=== PATIENT | male | born 1960 | race Two or more races ===

== ENCOUNTER 2024-06-01 17:42 | Emergency (ER) | payer MEDICARE, OTHER ==
[~2024-06-01] VITALS: Ht 165.1 cm; Wt 70.0 kg
--- NOTE | 2024-06-01 18:07 | ED.PDOC ---
History of Present Illness HPI Comments 64-YEAR-OLD MALE IS BROUGHT IN BY EMS FOR COMPLAINT OF CHEST PAIN NO SHORTNESS A BREATH, TODAY. PER EMS REPORT PATIENT VOICES ON UNPROVOKED ONSET OF SYMPTOMS, WHILE WALKING, WE PAIN RADIATING FROM HIS CHEST TO HIS LEFT ARM. PATIENT WAS STATED TO HAS BEEN EVICTED, RECENTLY, AND EXPOSED TO THE ELEMENTS PRIOR TO CALLING PARAMEDICS. PATIENT WAS NOTED TO HAVE VITALS WITHIN NORMAL LIMITS ON SCENE AND EN ROUTE. UPON ARRIVAL TO ED, PATIENT COMMENTS ON SYMPTOMS TO RESOLVING ON THEIR OWN. HE DENIES HAVING ANY SYMPTOMS CURRENTLY AT THIS TIME AND INQUIRES ON ESTABLISHMENTS RECOMMENDATIONS TO EAT AT. Time Seen by MD: 17:45 Reviewed Notes: Nurses Notes, Bagging Salvager Notes, Medications, Allergies Allergies: Coded Allergies: NO KNOWN ALLERGIES (Unverified , 06/01/24) Information Source: Patient, Emergency Med Personnel Mode of Arrival: EMS Severity: Moderate Timing: Hours Duration: Since onset Prehospital treatment: 12 Lead EKG, Nozzle Tender Past Medical History PAST MEDICAL HISTORY: Denies Surgical History: Denies all surgeries Family History Family History: Reviewed,noncontributory to illness, No family hx of Cancer, No family hx of DM, No family hx of Heart jamie, No family hx of HTN, No family hx ofKidney jamie, No family hx of Liver jamie, No family hx of Lung jamie, No family hx of Stroke Social History Smoker: Non-Smoker Alcohol: Denies ETOH Use Drugs: Denies Drug Use Lives In: Homeless Constitutional: denies: chills, diaphoresis, fatigue, fever, malaise, sweats, weakness, others EENTM: denies: blurred vision, double vision, ear bleeding, ear discharge, ear drainage, ear pain, ear ringing, eye pain, eye redness, hearing loss, mouth pain, mouth swelling, nasal discharge, nose bleeding, nose congestion, nose pain, photophobia, tearing, throat pain, throat swelling, voice changes, others Respiratory: reports: shortness of breath; denies: cough, hemoptysis, orthopnea, SOB at rest, SOB with excertion, stridor, wheezing, others Cardiovascular: reports: chest pain; denies: dizzy spells, diaphoresis, Dyspnea on exertion, edema, irregular heart beat, left arm pain, lightheadedness, palpitations, PND, syncope, others Gastrointestinal: denies: abdomen distended, abdominal pain, blood streaked bowels, constipated, diarrhea, dysphagia, difficulty swallowing, hematemesis, melena, nausea, poor appetite, poor fluid intake, rectal bleeding, rectal pain, vomiting, others Genitourinary: denies: burning, dysuria, flank pain, frequency, hematuria, incontinence, penile discharge, penile sore, pain, testicle pain, testicle swelling, urgency, others Neurological: denies: dizziness, fainting, headache, left sided numbness, left sided weakness, numbness, paresthesia, pre-existing deficit, right sided numbness, right sided weakness, seizure, speech problems, tingling, tremors, weakness, others Musculoskeletal: denies: back pain, gout, joint pain, joint swelling, muscle pain, muscle stiffness, neck pain, others Integumetry: denies: bruises, change in color, change in hair/nails, dryness, laceration, lesions, lumps, rash, wounds, others Allergic/Immunocompromised: denies: Difficulty Healing, Frequent Infections, Hives, Itching, others Hematologic/Lymphatic: denies: anemia, blood clots, easy bleeding, easy bruising, swollen glands, others Endocrine: denies: excessive hunger, excessive sweating, excessive thirst, excessive urination, flushing, intolerance to cold, intolerance to heat, unexplained weight gain, unexplained weight loss, others Psychiatric: denies: anxiety, bipolar disorder, depression, hopeless, panic disorder, schizophrenia, sleepless, suicidal, others All Other Systems: Reviewed and Negative (NEGATIVE UNLESS OTHERWISE STATED ABOVE OR IN HPI) Physical Exam General Appearance: Mild Distress (No distress at time of evaluation.), Normal HEENT: Normal ENT Inspection, Pharynx Normal, TMs Normal Neck: Full Range of Motion, Non-Tender, Normal, Normal Inspection Respiratory: Chest Non-Tender, Lungs Clear, No Accessory Muscle Use, No Respiratory Distress, Normal Breath Sounds Cardiovascular: No Edema, No JVD, No Murmur, No Gallop, Normal Peripheral Pulses, Regular Rate/Rhythm Breast Exam: Deferred Gastrointestinal: No Organomegaly, Non Tender, No Pulsatile Mass, Normal Bowel Sounds, Soft Genitalia: Deferred Pelvic: Deferred Rectal: Deferred Extremities: No calf tenderness, Normal capillary refill, Normal inspection, Normal range of motion, Non-tender, No pedal edema Neurologic: Alert, No Motor Deficits, Normal Affect, Normal Mood, No Sensory Deficits Cerebellar Function: Normal Reflexes: Normal Skin: Dry, Normal Color, Warm Lymphatic: No Adenopathy Was a procedure done? Was a procedure done?: No EKG EKG : Pulse Rate (adult): 107 [place]: Normal Cardiac Rhythm: ST Block: None Hypertrophy: None ST: Normal Differential Dx Considerations may include: HOMELESSNESS, COLD EXPOSURE, ANXIETY, ANGINA, COSTOCHONDRITIS, acute coronary syndrome X-Ray, Labs, Meds, VS Vital Signs Date Time Temp Pulse Resp B/P (MAP) Pulse Ox O2 Delivery O2 Flow Rate FiO2 06/01/24 18:23 107 06/01/24 17:42 107 06/01/24 17:42 98.9 90 16 158/69 (98) 100 Lab Test 06/01/24 18:08 06/01/24 17:50 Range/Units White Blood Count 12.1 H 4.4-10.8 10^3/uL Red Blood Count 5.93 H 4.5-5.90 10^6/uL Hemoglobin 16.6 13.5-17.5 g/dL Hematocrit 49.7 41.0-53.0 % Mean Corpuscular Volume 83.9 80.0-100.0 fL Mean Corpuscular Hemoglobin 28.1 28.0-32.0 pg Mean Corpuscular Hemoglobin Concent 33.5 32.0-36.0 g/dL Red Cell Distribution Width 13.1 11.8-14.3 % Platelet Count 351 140-450 10^3/uL Mean Platelet Volume 6.9 6.9-10.8 fL Neutrophils (%) (Auto) 59.6 37.0-80.0 % Lymphocytes (%) (Auto) 30.5 10.0-50.0 % Monocytes (%) (Auto) 7.7 0.0-12.0 % Eosinophils (%) (Auto) 1.6 0.0-7.0 % Basophils (%) (Auto) 0.6 0.0-2.0 % Neutrophils # (Auto) 7.2 1.6-8.6 10 ^3/uL Lymphocytes # (Auto) 3.7 0.4-5.4 10 ^3/uL Monocytes # (Auto) 0.9 0-1.3 10 ^3/uL Eosinophils # (Auto) 0.2 0-0.8 10 ^3/uL Basophils # (Auto) 0.1 0-0.2 10 ^3/uL Nucleated Red Blood Cells 0.2 % Sodium Level 139 136-145 mmol/L Potassium Level 3.9 3.5-5.1 mmol/L Chloride Level 103 98-107 mmol/L Carbon Dioxide Level 25 20-31 mmol/L Anion Gap 11 5-15 Blood Urea Nitrogen 16 9-23 mg/dL Creatinine 1.28 0.700-1.30 mg/dL Glomerular Filtration Rate Calc 63 >90 mL/min BUN/Creatinine Ratio 12.5 10.0-20.0 Serum Glucose 203 H 74-106 mg/dL Calcium Level 10.8 H 8.7-10.4 mg/dL Troponin I High Sensitivity 12 </=54 ng/L Urine Color Yellow Yellow Urine Clarity Clear Clear Urine pH 5.5 5.0-9.0 Urine Specific [place] 1.038 H 1.001-1.035 Urine Protein Trace H Negative Urine Ketones Negative Negative Urine Blood Negative Negative /uL Urine Nitrite Negative Negative Urine Bilirubin Negative Negative Urine Urobilinogen Normal Negative mg/dL Urine Leukocyte Esterase Negative Negative /uL Urine RBC 3 0 - 3 /hpf Urine Microscopic WBC 2 0-3 /HPF Urine Squamous Epithelial Cells Few <5 /hpf Urine Bacteria None seen None Seen /hpf Urine Hyaline Casts Few 0 - 2 /lpf Urine Mucus Few None Seen Urine Glucose 4+ H Normal mg/dL X-Ray, Labs, Meds, VS Comment All studies performed the ED were evaluated by me personally. Laboratories studies were unremarkable for any acute systemic processes including any cardiac related concerns. EKG revealed a sinus tachycardia with a rate of 107, left atrial enlargement, [place] interval of 109 and QT interval of 333. Unknown cause of patient's chest pain event. Patient has been advised to follow up with his primary care provider for Cardiology referral and evaluation. Time of 1ST Reevaluation: 19:47 Reevaluation 1ST: Improved Consultation: PCP, Cardiology Patient Education/Counseling: Diagnosis, Treatment Family Education/Counseling: Diagnosis, Treatment, No Family Present Departure 1 Departure Time of Disposition: 19:48 Impression: Primary Impression: Chest pain Disposition: 01 HOME / SELF CARE / HOMELESS Condition: Stable Additional Instructions: Advised patient follow up with his primary care provider for Cardiology referral and evaluation. Discharged With: Self Critical Care Note Critical Care Time?: No Stability Stability form required: No Heart Score Heart Score: Heart Score Response (Comments) Value History Slightly Suspicious 0 EKG Repolarization Disturb 1 Age 45-64 1 Risk Factors No known risk factors 0 Troponin Normal limit 0 Total 2 I personally scribed for MAXINE CRUZ PAC ([email or web address]) on 06/01/24 at 18:07. Electronically submitted by Tyler Conley ([email or web address]). I personally scribed for MAXINE CRUZ PAC ([email or web address]) on 06/01/24 at 18:23. Electronically submitted by Tyler Conley [email or web address]). MAXINE CRUZ PAC Jun 01, 2024 18:07
[2024-06-01 18:22] LABS: Basophils # (auto) 0.1 10 ^3/uL (0-0.2); Basophils % (auto) 0.6 % (0.0-2.0); Eosinophils # (auto) 0.2 10 ^3/uL (0-0.8); Eosinophils % (auto) 1.6 % (0.0-7.0); Hematocrit 49.7 % (41.0-53.0); Hemoglobin 16.6 g/dL (13.5-17.5); Lymphocytes # (auto) 3.7 10 ^3/uL (0.4-5.4); Lymphocytes % (auto) 30.5 % (10.0-50.0); Mean Corpuscular Hemoglobin 28.1 pg (28.0-32.0); Mean Corpuscular Hgb Conc. 33.5 g/dL (32.0-36.0); Mean Corpuscular Volume 83.9 fL (80.0-100.0); Monocytes # (auto) 0.9 10 ^3/uL (0-1.3); Monocytes % (auto) 7.7 % (0.0-12.0); Neutrophils # (auto) 7.2 10 ^3/uL (1.6-8.6); Neutrophils % (auto) 59.6 % (37.0-80.0); Nucleated Red Blood Cells % 0.2 %; Platelet Count (auto) 351 10^3/uL (140-450); Red Blood Cells 5.93 10^6/uL (4.5-5.90); Red Cell Distribution Width 13.1 % (11.8-14.3); White Blood Cell 12.1 10^3/uL (4.4-10.8)
[2024-06-01 18:43] LABS: Chloride 103 mmol/L (98-107); Potassium 3.9 mmol/L (3.5-5.1); Sodium 139 mmol/L (136-145)
[2024-06-01 18:44] LABS: Anion Gap 11 (5-15); Carbon Dioxide 25 mmol/L (20-31)
[2024-06-01 18:50] LABS: BUN/Creatinine Ratio 12.5 (10.0-20.0); Blood Urea Nitrogen 16 mg/dL (9-23)
[2024-06-01 18:58] LABS: Calcium 10.8 mg/dL (8.7-10.4); Glucose 203 mg/dL (74-106)
[2024-06-01 19:07] LABS: Urine Bacteria None Seen /hpf (None Seen)
[2024-06-01 19:41] LABS: Urine Blood Negative /uL (Negative); Urine Clarity Clear (Clear); Urine Color Yellow (Yellow); Urine Hyaline Cast FEW /lpf (0 - 2); Urine Mucus FEW (None Seen); Urine Protein, UAD TRACE (Negative); Urine Specific Gravity 1.038 (1.001-1.035); Urine Squamous Epithelial Cell FEW /hpf (<5); Urine Urobilinogen Normal (Negative); Urine WBC 2 /HPF (0-3); Urine pH 5.5 (5.0-9.0)
[2024-06-01] MEDS: METOPROLOL TARTRATE 1MG/1ML-5ML VIAL IV ONE (20:09)
[2024-06-01 20:10] VITALS: BP 136/63; PULSE 107; RESP 19; TEMP 98.2; O2SAT 98
[2024-06-02] MEDS ORDERED: LISI-285 PO (01:16)
[2024-06-02] MEDS ORDERED: INSLANTI SC ×2 (01:16→22:29)
--- NOTE | 2024-06-02 08:44 | ECG ---
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
== END 2024-06-01 20:12 | disposition home or self-care (01) ==
LOC: EDBD 17:42 → ER 17:42
DX: R07.9 Chest pain, unspecified (principal); M79.602 Pain in left arm; Z59.00 Homelessness unspecified
CPT/HCPCS: 36415; 80048; 81001; 84484; 85025; 93005

== ENCOUNTER 2024-06-02 00:03 | Emergency (ER) | payer MEDICARE, OTHER ==
[~2024-06-02] VITALS: Ht 172.7 cm; Wt 78.5 kg
[2024-06-02 00:16] VITALS: RESP 18; TEMP 96.1; O2SAT 98
[2024-06-02 00:31] VITALS: PULSE 114
--- NOTE | 2024-06-02 01:00 | ED.PDOC ---
HPI Comments A 64 YEAR OLD /MALE PRESENTS TO THE ED WITH COMPLAINT OF HTN . STATES HE FEELS LIKE HIS BLOOD PRESSURE IS HIGH. YOUR EARLIER BEFORE FOR SAME FEELING HOWEVER WAS NOT PRESCRIBED ANY MEDICATIONS FOR HIS BLOOD PRESSURE WAS TOLD TO FOLLOW UP WITH HIS PCP. PATIENT STATES HE RAN OUT OF HIS REFILLS OF BOTH BLOOD PRESSURE MEDICATION AND DIABETES MEDICINE. STATES HE IS ON LANTUS 50 UNITS HS. HYDROCHLOROTHIAZIDE/LISINOPRIL 20 MG/12.5 MG. BLOOD SUGAR 320 IN TRIAGE. PATIENT DENIES FEVER, CHILLS, SHORTNESS OF BREATH, CHEST PAIN, WEAKNESS, NUMBNESS, HEADACHE, SLURRED SPEECH, ABDOMINAL PAIN, NAUSEA, VOMITING, HEADACHE, OR OTHER COMPLAINTS. NO OTHER SYMPTOMS OR MODIFYING FACTORS AT THIS TIME Chief Complaint: High Blood Pressure Time Seen by MD: 00:32 Primary Care Provider: GENARO Reviewed Notes: Nurses Notes, Medications, Allergies Allergies: Coded Allergies: NO KNOWN ALLERGIES (Unverified , 06/01/24) Home Meds Active Scripts Insulin Glargine (Lantus) 100 Unit/Ml Inj, 50 UNIT SC HS for 20 Days, #1 INJ Prov:VALENTINE VICENTE 06/02/24 Lisinopril & Hydrochlorothiazi (Lisinopril/Hydrochlorothi) 1 Tab Tab, 1 TAB PO BID for 20 Days, #40 TAB Prov:VALENTINE VICENTE 06/02/24 Information Source: Patient Mode of Arrival: Ambulatory Past Medical History PAST MEDICAL HISTORY: Denies Surgical History: Denies all surgeries Family History Family History: Reviewed,noncontributory to illness, No family hx of Cancer, No family hx of DM, No family hx of Heart jamie, No family hx of HTN, No family hx ofKidney jamie, No family hx of Liver jamie, No family hx of Lung jamie, No family hx of Stroke Social History Smoker: Non-Smoker Alcohol: Denies ETOH Use Drugs: Denies Drug Use Lives In: Homeless Constitutional: denies: chills, diaphoresis, fatigue, fever, malaise, sweats, weakness, others EENTM: denies: blurred vision, double vision, ear bleeding, ear discharge, ear drainage, ear pain, ear ringing, eye pain, eye redness, hearing loss, mouth pain, mouth swelling, nasal discharge, nose bleeding, nose congestion, nose pain, photophobia, tearing, throat pain, throat swelling, voice changes, others Respiratory: denies: cough, hemoptysis, orthopnea, SOB at rest, shortness of breath, SOB with excertion, stridor, wheezing, others Cardiovascular: denies: chest pain, dizzy spells, diaphoresis, Dyspnea on exertion, edema, irregular heart beat, left arm pain, lightheadedness, palpitations, PND, syncope, others Gastrointestinal: denies: abdomen distended, abdominal pain, blood streaked bowels, constipated, diarrhea, dysphagia, difficulty swallowing, hematemesis, melena, nausea, poor appetite, poor fluid intake, rectal bleeding, rectal pain, vomiting, others Genitourinary: denies: burning, dysuria, flank pain, frequency, hematuria, incontinence, penile discharge, penile sore, pain, testicle pain, testicle swelling, urgency, others Neurological: denies: dizziness, fainting, headache, left sided numbness, left sided weakness, numbness, paresthesia, pre-existing deficit, right sided numbness, right sided weakness, seizure, speech problems, tingling, tremors, weakness, others Musculoskeletal: denies: back pain, gout, joint pain, joint swelling, muscle pain, muscle stiffness, neck pain, others Integumetry: denies: bruises, change in color, change in hair/nails, dryness, laceration, lesions, lumps, rash, wounds, others Allergic/Immunocompromised: denies: Difficulty Healing, Frequent Infections, Hives, Itching, others Hematologic/Lymphatic: denies: anemia, blood clots, easy bleeding, easy bruising, swollen glands, others Endocrine: denies: excessive hunger, excessive sweating, excessive thirst, excessive urination, flushing, intolerance to cold, intolerance to heat, unexplained weight gain, unexplained weight loss, others Psychiatric: denies: anxiety, bipolar disorder, depression, hopeless, panic disorder, schizophrenia, sleepless, suicidal, others Physical Exam General Appearance: No Apparent Distress, Normal HEENT: Normal ENT Inspection, Pharynx Normal, TMs Normal Neck: Full Range of Motion, Non-Tender Respiratory: Lungs Clear, No Respiratory Distress, Normal Breath Sounds Cardiovascular: No Edema, No JVD, No Murmur, No Gallop, Normal Peripheral Pulses, Regular Rate/Rhythm Breast Exam: Deferred Gastrointestinal: No Organomegaly, Non Tender, No Pulsatile Mass, Normal Bowel Sounds, Soft Genitalia: Deferred Pelvic: Deferred Rectal: Deferred Extremities: Normal capillary refill, Normal inspection, Normal range of motion, Non-tender, No pedal edema Musculoskeletal : Apperance: Normal Neurologic: Alert, process excellence manager II-XII nml as Tested, No Motor Deficits, Normal Affect, Normal Mood, No Sensory Deficits Cerebellar Function: Normal Reflexes: Normal Skin: Dry, Normal Color, Warm Lymphatic: No Adenopathy Was a procedure done? Was a procedure done?: No CP Differential Dx Differential Diagnosis: Anxiety / Panic Attack, SD, PVC's, Sinus Tachycardia Differential Diagnosis: Myocardial Infarction X-Ray, Labs, Meds, VS Vital Signs Date Time Temp Pulse Resp B/P (MAP) Pulse Ox O2 Delivery O2 Flow Rate FiO2 06/02/24 01:30 163/94 06/02/24 00:31 114 06/02/24 00:16 96.1 114 18 163/94 (117) 98 96.1 06/02/24 00:16 96.1 114 18 163/94 (117) 98 Lab Test 06/02/24 01:19 06/02/24 00:16 Range/Units POC Glucose 334 H 356 H 70-106 mg/dl Current Medications Medications (Trade) Dose Ordered Sig/Kenzie Route Start Time Stop Time Status Last Admin Lisinopril (Zestril Tablet) 20 mg ONCE ONCE PO 06/02/24 01:30 06/02/24 01:31 DC 06/02/24 01:30 X-Ray, Labs, Meds, VS Comment MEDICATION REFILL BASED ON PATIENT'S REPORTED HISTORY. PATIENT GIVEN LISINOPRIL 20 MG X 1. ADVISED TO REST INCREASE P.O. FLUIDS. ADVISED TO REFILL HIS MEDICATIONS AND FOLLOW UP WITH HIS PCP FOR FURTHER REFILLS. FOLLOW-UP WITH PCP IN 1 TO 2 DAYS. TAKE MEDICATIONS PRESCRIBED. RETURN TO ED FOR ANY NEW OR WORSENING SYMPTOMS. Time of 1ST Reevaluation: 01:51 Reevaluation 1ST: Improved Patient Education/Counseling: Diagnosis, Treatment, Prognosis, Need For Follow Up Family Education/Counseling: No Family Present Departure 1 Departure Time of Disposition: 01:51 Impression: Primary Impression: Diabetes type 1, controlled Qualified Codes: E10.9 - Type 1 diabetes mellitus without complications Additional Impressions: Benign hypertension Encounter for medication refill Disposition: HOME / SELF CARE / HOMELESS Condition: Stable e-Prescriptions Insulin Glargine (Lantus) 100 Unit/Ml Inj 50 UNIT SC HS for 20 Days, #1 INJ Prov: VALENTINE VICENTE 06/02/24 Lisinopril & Hydrochlorothiazi (Lisinopril/Hydrochlorothi) 1 Tab Tab 1 TAB PO BID for 20 Days, #40 TAB Prov: VALENTINE VICENTE 06/02/24 Discharged With: Self Critical Care Note Critical Care Time?: No Stability Stability form required: No Heart Score Heart Score: Heart Score Response (Comments) Value History N/A 0 EKG N/A 0 Age 45-64 1 Risk Factors N/A 0 Troponin N/A 0 Total 1 VALENTINE VICENTE Jun 02, 2024 01:00
[2024-06-02] MEDS ORDERED: INSLANTI SC ×2 (01:16→22:29)
[2024-06-02] MEDS ORDERED: LISI-285 PO (01:16)
[2024-06-02] MEDS: LISINOPRIL 20 MG TAB PO ONE (01:30)
[2024-06-02 02:19] VITALS: BP 147/76
== END 2024-06-02 02:20 | disposition home or self-care (01) ==
LOC: ER 00:10
DX: E10.9 Type 1 diabetes mellitus without complications (principal); I10 Essential (primary) hypertension; Z76.0 Encounter for issue of repeat prescription; Z59.00 Homelessness unspecified; Z79.4 Long term (current) use of insulin
CPT/HCPCS: 82962

== ENCOUNTER 2024-06-02 17:54 | Emergency (ER) | payer MEDICARE, OTHER ==
[~2024-06-02] VITALS: Ht 152.4 cm; Wt 82.1 kg
[~2024-06-02 17:54] MED LIST: INSLANTI SC; LISI-285 PO
--- NOTE | 2024-06-02 18:20 | ECG ---
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
--- NOTE | 2024-06-02 19:00 | ED.PDOC ---
GI ASSESSMENT HPI Comments 64-year-old male came to ER due to abdominal pain. Patient has history of hypertension and diabetes. Denies any history of abdominal surgeries. States few hours ago he started having right lower quadrant abdominal pain, aching, non radiating, associated with bouts of diarrhea. Persistence prompted check up to the ER. Chief Complaint: Abdominal Pain Time Seen by MD: 19:00 Primary Care Provider: GENARO Reviewed Notes: Nurses Notes Allergies: Coded Allergies: NO KNOWN ALLERGIES (Unverified , 06/01/24) Home Meds Active Scripts Insulin Glargine (Lantus) 100 Unit/Ml Inj, 50 UNIT SC HS for 20 Days, #1 INJ Prov:DANTE VICENTEK PROOFING MACHINE OPERATOR 06/02/24 Lisinopril & Hydrochlorothiazi (Lisinopril/Hydrochlorothi) 1 Tab Tab, 1 TAB PO BID for 20 Days, #40 TAB Prov:VALENTINE VICENTE PROOFING MACHINE OPERATOR 06/02/24 Information Source: Patient Mode of Arrival: Ambulatory Timing: Hours Duration: Intermittent Prehospital treatment: None Quality: Aching Vomitus: None Stool: Loose, Watery Severity: Moderate Recent: None Recent Hx of: None Pain Location: RLQ Modifying Factors: Nothing Associated sign and symptoms: Diarrhea, Abdominal Pain Past Medical History PAST MEDICAL HISTORY: DM, HTN Surgical History: Denies all surgeries Family History Family History: Reviewed,noncontributory to illness Social History Smoker: Non-Smoker Alcohol: Denies ETOH Use Drugs: Denies Drug Use Lives In: Homeless Constitutional: denies: chills, diaphoresis, fatigue, fever, malaise, sweats, weakness, others EENTM: denies: blurred vision, double vision, ear bleeding, ear discharge, ear drainage, ear pain, ear ringing, eye pain, eye redness, hearing loss, mouth pain, mouth swelling, nasal discharge, nose bleeding, nose congestion, nose pain, photophobia, tearing, throat pain, throat swelling, voice changes, others Respiratory: denies: cough, hemoptysis, orthopnea, SOB at rest, shortness of breath, SOB with excertion, stridor, wheezing, others Cardiovascular: denies: chest pain, dizzy spells, diaphoresis, Dyspnea on exertion, edema, irregular heart beat, left arm pain, lightheadedness, palpitations, PND, syncope, others Gastrointestinal: reports: abdominal pain, diarrhea; denies: abdomen distended, blood streaked bowels, constipated, dysphagia, difficulty swallowing, hematemesis, melena, nausea, poor appetite, poor fluid intake, rectal bleeding, rectal pain, vomiting, others Genitourinary: denies: burning, dysuria, flank pain, frequency, hematuria, incontinence, penile discharge, penile sore, pain, testicle pain, testicle swelling, urgency, others Neurological: denies: dizziness, fainting, headache, left sided numbness, left sided weakness, numbness, paresthesia, pre-existing deficit, right sided numbness, right sided weakness, seizure, speech problems, tingling, tremors, weakness, others Musculoskeletal: denies: back pain, gout, joint pain, joint swelling, muscle pain, muscle stiffness, neck pain, others Integumetry: denies: bruises, change in color, change in hair/nails, dryness, laceration, lesions, lumps, rash, wounds, others Allergic/Immunocompromised: denies: Difficulty Healing, Frequent Infections, Hives, Itching, others Hematologic/Lymphatic: denies: anemia, blood clots, easy bleeding, easy bruising, swollen glands, others Endocrine: denies: excessive hunger, excessive sweating, excessive thirst, excessive urination, flushing, intolerance to cold, intolerance to heat, unexplained weight gain, unexplained weight loss, others Psychiatric: denies: anxiety, bipolar disorder, depression, hopeless, panic disorder, schizophrenia, sleepless, suicidal, others Physical Exam General Appearance: No Apparent Distress, Normal HEENT: Normal ENT Inspection, Pharynx Normal, TMs Normal Neck: Full Range of Motion, Non-Tender, Normal, Normal Inspection Respiratory: Chest Non-Tender, Lungs Clear, No Accessory Muscle Use, No Respiratory Distress, Normal Breath Sounds Cardiovascular: No Edema, No JVD, No Murmur, No Gallop, Normal Peripheral Pulses, Regular Rate/Rhythm Breast Exam: Deferred Gastrointestinal: No Organomegaly, No Pulsatile Mass, Normal Bowel Sounds, RLQ, Soft, Tenderness Genitalia: Deferred Pelvic: Deferred Rectal: Deferred Extremities: No calf tenderness, Normal capillary refill, Normal inspection, Normal range of motion, Non-tender, No pedal edema Musculoskeletal : Apperance: Normal Neurologic: Alert, engine builder II-XII nml as Tested, No Motor Deficits, Normal Affect, Normal Mood, No Sensory Deficits Cerebellar Function: Normal Reflexes: Normal Skin: Dry, Normal Color, Warm Lymphatic: No Adenopathy Was a procedure done? Was a procedure done?: No GI differential Dx Differential Diagnosis: Appendicitis, Constipation, Diverticular disease, Gastritis/PUD, Hernia, Hepatitis, Pancreatitis, UTI, Urolithiasis X-Ray, Labs, Meds, VS Vital Signs Date Time Temp Pulse Resp B/P (MAP) Pulse Ox O2 Delivery O2 Flow Rate FiO2 06/02/24 21:12 91 18 100 Room Air* 0 21 06/02/24 21:10 97.9 91 18 171/83 (112) 100 97.9 06/02/24 18:15 93 06/02/24 18:13 97.5 98 16 118/70 (86) 99 Lab Test 06/02/24 21:05 06/02/24 19:05 Range/Units POC Glucose 321 H 70-106 mg/dl White Blood Count 7.2 # 4.4-10.8 10^3/uL Red Blood Count 4.97 4.5-5.90 10^6/uL Hemoglobin 14.1 # 13.5-17.5 g/dL Hematocrit 41.8 # 41.0-53.0 % Mean Corpuscular Volume 84.0 80.0-100.0 fL Mean Corpuscular Hemoglobin 28.3 28.0-32.0 pg Mean Corpuscular Hemoglobin Concent 33.7 32.0-36.0 g/dL Red Cell Distribution Width 13.3 11.8-14.3 % Platelet Count 308 140-450 10^3/uL Mean Platelet Volume 7.0 6.9-10.8 fL Neutrophils (%) (Auto) 39.2 37.0-80.0 % Lymphocytes (%) (Auto) 45.7 10.0-50.0 % Monocytes (%) (Auto) 9.4 0.0-12.0 % Eosinophils (%) (Auto) 4.9 0.0-7.0 % Basophils (%) (Auto) 0.8 0.0-2.0 % Neutrophils # (Auto) 2.8 1.6-8.6 10 ^3/uL Lymphocytes # (Auto) 3.3 0.4-5.4 10 ^3/uL Monocytes # (Auto) 0.7 0-1.3 10 ^3/uL Eosinophils # (Auto) 0.4 0-0.8 10 ^3/uL Basophils # (Auto) 0.1 0-0.2 10 ^3/uL Nucleated Red Blood Cells 0.1 % Sodium Level 137 136-145 mmol/L Potassium Level 4.1 3.5-5.1 mmol/L Chloride Level 99 98-107 mmol/L Carbon Dioxide Level 30 20-31 mmol/L Anion Gap 8 5-15 Blood Urea Nitrogen 23 9-23 mg/dL Creatinine 1.09 0.700-1.30 mg/dL Glomerular Filtration Rate Calc 77 >90 mL/min BUN/Creatinine Ratio 21.1 H 10.0-20.0 Serum Glucose 434 #*H 74-106 mg/dL Calcium Level 10.1 8.7-10.4 mg/dL Time of 1ST Reevaluation: 18:54 Reevaluation 1ST: Unchanged Patient Education/Counseling: Diagnosis, Treatment Family Education/Counseling: No Family Present Departure 1 Departure Time of Disposition: 22:28 (Patient does not want any interventions at this time. Patient is homeless and reports that his insulin was sent to the wrong pharmacy requested we send his insulin to the correct pharmacy he is refusing all interventions. We will discharge patient home with patient follow up) Impression: Primary Impression: Uncontrolled diabetes mellitus Qualified Codes: E11.65 - Type 2 diabetes mellitus with hyperglycemia Disposition: 01 HOME / SELF CARE / HOMELESS Condition: Stable e-Prescriptions Insulin Glargine (Lantus) 100 Unit/Ml Inj 50 UNIT SC HS for 20 Days, #1 INJ Prov: MAGALIS GARDNER MD 06/02/24 Discharged With: Self Critical Care Note Critical Care Time?: No Stability Stability form required: No Heart Score Heart Score: Heart Score Response (Comments) Value History N/A 0 EKG N/A 0 Age N/A 0 Risk Factors N/A 0 Troponin N/A 0 Total 0 I personally scribed for MAGALIS GARDNER MD ([email or web address]) on 06/02/24 at 19:00. Electronically submitted by Jamar Marie ([email or web address]). MAGALIS GARDNER MD Jun 02, 2024 19:00
[2024-06-02 19:14] LABS: Basophils # (auto) 0.1 10 ^3/uL (0-0.2); Basophils % (auto) 0.8 % (0.0-2.0); Eosinophils # (auto) 0.4 10 ^3/uL (0-0.8); Eosinophils % (auto) 4.9 % (0.0-7.0); Hematocrit 41.8 % (41.0-53.0); Hemoglobin 14.1 g/dL (13.5-17.5); Lymphocytes # (auto) 3.3 10 ^3/uL (0.4-5.4); Lymphocytes % (auto) 45.7 % (10.0-50.0); Mean Corpuscular Hemoglobin 28.3 pg (28.0-32.0); Mean Corpuscular Hgb Conc. 33.7 g/dL (32.0-36.0); Monocytes # (auto) 0.7 10 ^3/uL (0-1.3); Monocytes % (auto) 9.4 % (0.0-12.0); Neutrophils # (auto) 2.8 10 ^3/uL (1.6-8.6); Neutrophils % (auto) 39.2 % (37.0-80.0); Nucleated Red Blood Cells % 0.1 %; Platelet Count (auto) 308 10^3/uL (140-450); Red Blood Cells 4.97 10^6/uL (4.5-5.90); Red Cell Distribution Width 13.3 % (11.8-14.3); White Blood Cell 7.2 10^3/uL (4.4-10.8)
[2024-06-02 19:23] LABS: Anion Gap 8 (5-15); Carbon Dioxide 30 mmol/L (20-31); Chloride 99 mmol/L (98-107); Potassium 4.1 mmol/L (3.5-5.1); Sodium 137 mmol/L (136-145)
[2024-06-02 19:24] LABS: Calcium 10.1 mg/dL (8.7-10.4)
[2024-06-02 19:29] LABS: BUN/Creatinine Ratio 21.1 (10.0-20.0); Blood Urea Nitrogen 23 mg/dL (9-23)
[2024-06-02 19:36] LABS: Glucose 434 mg/dL (74-106)
[2024-06-02] MEDS: SODIUM CHLORIDE 0.9% 1,000 ML IV ONE (20:45)
[2024-06-02 21:10] VITALS: BP 171/83; TEMP 97.9
[2024-06-02 21:12] VITALS: PULSE 91; RESP 18; O2SAT 100
[2024-06-02] MEDS ORDERED: INSLANTI SC (22:29)
== END 2024-06-02 22:36 | disposition home or self-care (01) ==
LOC: ER 17:54
DX: E11.65 Type 2 diabetes mellitus with hyperglycemia (principal); I10 Essential (primary) hypertension; Z59.00 Homelessness unspecified; Z79.899 Other long term (current) drug therapy
CPT/HCPCS: 36415; 80048; 82947; 82962; 85025; 93005

== ENCOUNTER 2024-06-03 04:40 | Emergency (ER) | payer MEDICARE, OTHER ==
[~2024-06-03] VITALS: Ht 172.7 cm; Wt 80.7 kg
[2024-06-03 05:06] VITALS: BP 142/52; PULSE 69; RESP 18; TEMP 97.3; O2SAT 100
[2024-06-03] MEDS: LOPERAMIDE HCL 2 MG CAP/TAB PO ONE (06:42)
--- NOTE | 2024-06-03 06:46 | ED.PDOC ---
History of Present Illness HPI Comments A 64 YEAR OLD MALE PRESENTS TO THE ED WITH COMPLAINT OF DIARRHEA. PATIENT STATES HE HAS BEEN EXPERIENCING DIARRHEA FOR THE LAST 2 DAYS. PATIENT HAS BEEN TO THIS ED 2 TIMES IN THE LAST 24 HOURS FOR 2 DIFFERENT COMPLAINTS, WHERE LABS WERE DONE ALL OF WHICH WERE NORMAL EXCEPT FOR HIS BLOOD SUGAR BEING ELEVATED. PATIENT ONLY RECEIVED 1 L NORMAL SALINE IV WHILE HERE IN THE ED AND WAS PRESCRIBED INSULIN, BUT DID NOT CORRECTION WARDEN HIS PRESCRIPTION OF YET. PATIENT DENIES FEVER, CHILLS, SHORTNESS OF BREATH, CHEST PAIN, ABDOMINAL PAIN, NAUSEA, VOMITING, HEADACHE, OR OTHER COMPLAINTS. NO OTHER SYMPTOMS OR MODIFYING FACTORS AT THIS TIME. PATIENT IS ALERT, ORIENTED X 4, AND HAS STEADY GAIT. Chief Complaint: Diarrhea Time Seen by MD: 06:20 Primary Care Provider: GENARO Reviewed Notes: Nurses Notes, Medications, Allergies Allergies: Coded Allergies: NO KNOWN ALLERGIES (Unverified , 06/01/24) Home Meds Active Scripts Insulin Glargine (Lantus) 100 Unit/Ml Inj, 50 UNIT SC HS for 20 Days, #1 INJ Prov:MAGALIS GARDNER MD 06/02/24 Lisinopril & Hydrochlorothiazi (Lisinopril/Hydrochlorothi) 1 Tab Tab, 1 TAB PO BID for 20 Days, #40 TAB Prov:VALENTINE VICENTE 06/02/24 Information Source: Patient Mode of Arrival: Ambulatory Severity: Moderate Timing: Days Duration: Since onset, Days Prehospital treatment: None Medication Refill: For: Other (DIARRHEA) Past Medical History PAST MEDICAL HISTORY: DM, HTN Surgical History: Denies all surgeries Family History Family History: Reviewed,noncontributory to illness Social History Smoker: Non-Smoker Alcohol: Denies ETOH Use Drugs: Denies Drug Use Lives In: Homeless Constitutional: denies: chills, diaphoresis, fatigue, fever, malaise, sweats, weakness, others EENTM: denies: blurred vision, double vision, ear bleeding, ear discharge, ear drainage, ear pain, ear ringing, eye pain, eye redness, hearing loss, mouth pain, mouth swelling, nasal discharge, nose bleeding, nose congestion, nose pain, photophobia, tearing, throat pain, throat swelling, voice changes, others Respiratory: denies: cough, hemoptysis, orthopnea, SOB at rest, shortness of breath, SOB with excertion, stridor, wheezing, others Cardiovascular: denies: chest pain, dizzy spells, diaphoresis, Dyspnea on exertion, edema, irregular heart beat, left arm pain, lightheadedness, palpitations, PND, syncope, others Gastrointestinal: reports: diarrhea; denies: abdomen distended, abdominal pain, blood streaked bowels, constipated, dysphagia, difficulty swallowing, hematemesis, melena, nausea, poor appetite, poor fluid intake, rectal bleeding, rectal pain, vomiting, others Genitourinary: denies: burning, dysuria, flank pain, frequency, hematuria, incontinence, penile discharge, penile sore, pain, testicle pain, testicle swelling, urgency, others Neurological: denies: dizziness, fainting, headache, left sided numbness, left sided weakness, numbness, paresthesia, pre-existing deficit, right sided numbness, right sided weakness, seizure, speech problems, tingling, tremors, weakness, others Musculoskeletal: denies: back pain, gout, joint pain, joint swelling, muscle pain, muscle stiffness, neck pain, others Integumetry: denies: bruises, change in color, change in hair/nails, dryness, laceration, lesions, lumps, rash, wounds, others Allergic/Immunocompromised: denies: Difficulty Healing, Frequent Infections, Hives, Itching, others Hematologic/Lymphatic: denies: anemia, blood clots, easy bleeding, easy bruising, swollen glands, others Endocrine: denies: excessive hunger, excessive sweating, excessive thirst, excessive urination, flushing, intolerance to cold, intolerance to heat, unexplained weight gain, unexplained weight loss, others Psychiatric: denies: anxiety, bipolar disorder, depression, hopeless, panic disorder, schizophrenia, sleepless, suicidal, others All Other Systems: Reviewed and Negative Physical Exam General Appearance: No Apparent Distress, Normal HEENT: Normal ENT Inspection, PERRL/EOMI, Pharynx Normal, TMs Normal Neck: Full Range of Motion, Non-Tender, Normal, Normal Inspection Respiratory: Chest Non-Tender, Lungs Clear, No Accessory Muscle Use, No Respiratory Distress, Normal Breath Sounds Cardiovascular: No Edema, No JVD, No Murmur, No Gallop, Normal Peripheral Pulses, Regular Rate/Rhythm Breast Exam: Deferred Gastrointestinal: No Organomegaly, Non Tender, No Pulsatile Mass, Normal Bowel Sounds, Soft Genitalia: Deferred Pelvic: Deferred Rectal: Deferred Extremities: No calf tenderness, Normal capillary refill, Normal inspection, Normal range of motion, Non-tender, No pedal edema Musculoskeletal : Apperance: Normal 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 Was a procedure done?: No Differential Dx Considerations may include: DIARRHEA, VIRAL SYNDROME, UNCONTROLLED DIABETES X-Ray, Labs, Meds, VS Vital Signs Date Time Temp Pulse Resp B/P (MAP) Pulse Ox O2 Delivery O2 Flow Rate FiO2 06/03/24 05:06 97.3 69 18 142/52 (82) 100 97.3 06/03/24 05:06 Room Air 06/03/24 05:06 97.3 69 20 142/59 (86) 100 Lab Test 06/03/24 06:43 Range/Units POC Glucose 319 H 70-106 mg/dl Current Medications Medications (Trade) Dose Ordered Sig/Kenzie Route Start Time Stop Time Status Last Admin Loperamide HCl (Imodium Capsule) 4 mg ONCE ONCE PO 06/03/24 06:45 06/03/24 06:46 DC 06/03/24 06:42 Insulin Human Regular (InsuLIN R) 8 units ONCE ONCE SC 06/03/24 06:45 06/03/24 06:47 DC 06/03/24 06:54 X-Ray, Labs, Meds, VS Comment EXTERNAL MEDICAL RECORDS REVIEWED: [NONE] INDEPENDENT HISTORIANS: [NONE] SOCIAL DETERMINANTS OF HEALTH: PATIENT IS CURRENTLY HOMELESS. LABS ORDERED: NONE REVIEWED AND INTERPRETED RESULTS: NONE IMAGING ORDERED: NONE PATIENT'S LABS IN CHARGE FROM 06/02/2024 WERE REVIEWED BY ME. TREATMENTS ORDERED: INSULIN 8 UNITS SUBCUTANEOUSLY PROCEDURES PERFORMED: NONE CRITICAL CARE TIME: NONE I HAVE DISCUSSED THE PATIENT WITH THE ATTENDING PHYSICIAN DR. CANADA AND HE AGREES WITH THE PATIENT'S PLAN OF CARE AND DISPOSITION. BASED ON HISTORY OF PRESENT ILLNESS, AND PHYSICAL EXAM, PATIENT WILL BE DISCHARGED HOME. SHARED DECISION MAKING: PATIENT INSTRUCTED TO FOLLOW UP WITH PRIMARY CARE PROVIDER IN 1-2 DAYS FOR RE-EVALUATION OF SYMPTOMS. PATIENT VERBALIZES UNDERSTANDING TO RETURN TO ED FOR NEW OR WORSENING SYMPTOMS OR IF FOLLOW UP WITH PCP CANNOT BE OBTAINED. PATIENT FEELS COMFORTABLE GOING HOME AT THIS TIME. ALL QUESTIONS ADDRESSED AT TIME OF DISCHARGE. Time of 1ST Reevaluation: 07:20 Reevaluation 1ST: Improved Patient Education/Counseling: Diagnosis, Treatment, Need For Follow Up Family Education/Counseling: Diagnosis, Treatment, Need For Follow Up Medical Screening: No EMC Exist At This Time Departure 1 Departure Time of Disposition: 07:20 Impression: Primary Impression: Diarrhea Qualified Codes: R19.7 - Diarrhea, unspecified Additional Impression: Uncontrolled diabetes mellitus Qualified Codes: E11.65 - Type 2 diabetes mellitus with hyperglycemia Disposition: 01 HOME / SELF CARE / HOMELESS Condition: Stable Additional Instructions: FOLLOW-UP WITH PCP IN 1 TO 2 DAYS. TAKE MEDICATIONS PRESCRIBED. RETURN TO ED FOR ANY NEW OR WORSENING SYMPTOMS. Discharged With: Self Critical Care Note Critical Care Time?: No Stability Stability form required: No I personally scribed for ADRIANO SCHWARTZ ([email or web address]) on 06/03/24 at 06:46. Electronically submitted by Chucky Mckeon ([email or web address]). ADRIANO SCHWARTZ Jun 03, 2024 06:46
[2024-06-03] MEDS: InsuLIN REG 1unit/0.01ml Soln (100units/ml) SC ONE (06:54)
== END 2024-06-03 07:25 | disposition home or self-care (01) ==
LOC: ER 04:40
DX: R19.7 Diarrhea, unspecified (principal); E11.65 Type 2 diabetes mellitus with hyperglycemia; I10 Essential (primary) hypertension
CPT/HCPCS: 82962; 96372; 99283; J1815

== ENCOUNTER 2024-06-03 14:33 | Emergency (ER) | payer MEDICARE, OTHER ==
[~2024-06-03] VITALS: Ht 172.7 cm; Wt 81.2 kg
[2024-06-03 14:47] VITALS: BP 172/81; PULSE 93; RESP 18; O2SAT 100
[2024-06-03] MEDS ORDERED: SODIUM CHLORIDE 0.9% 2,000 ML IV ONE (15:45)
[2024-06-03] MEDS ORDERED: InsuLIN REG 1unit/0.01ml Soln (100units/ml) IV ONE (15:45)
--- NOTE | 2024-06-03 15:51 | ED.PDOC ---
History of Present Illness HPI Comments 64 y/o M, with a history of CVA, DM, HTN, presents with medication refill- inquiry, today. Patient is a poor historian and endorses on being without his medications he takes to manage his DM and HTN for over 3x weeks after, recently, being evicted from his place of residence and unable to collect said prescri ptions from there since. He is unable to recollect name insulin or HTN medication at time of assessment. Patient denies having any polydipsia, polyuria, polyphagia, chest pain, shortness of breath, headache, vision or speech changes, fever, chills at this time. Patient was complaint some generalized weakness and fatigue. Chief Complaint: Hyperglycemia Time Seen by MD: 15:27 Primary Care Provider: GENARO Reviewed Notes: Nurses Notes, Medications, Allergies Allergies: Coded Allergies: NO KNOWN ALLERGIES (Unverified , 06/01/24) Home Meds Active Scripts Insulin Glargine (Lantus) 100 Unit/Ml Inj, 50 UNIT SC HS for 20 Days, #1 INJ Prov:MAGALIS GARDNER MD 06/02/24 Lisinopril & Hydrochlorothiazi (Lisinopril/Hydrochlorothi) 1 Tab Tab, 1 TAB PO BID for 20 Days, #40 TAB Prov:VALENTINE VICENTE 06/02/24 Information Source: Patient Mode of Arrival: Ambulatory Severity: Moderate Timing: Weeks Duration: Since onset Prehospital treatment: None Past Medical History PAST MEDICAL HISTORY: CVA, DM, HTN Surgical History: Denies all surgeries Family History Family History: Reviewed,noncontributory to illness Social History Smoker: Non-Smoker Alcohol: Denies ETOH Use Drugs: Denies Drug Use Lives In: Homeless Constitutional: reports: fatigue, weakness; denies: chills, diaphoresis, fever, malaise, sweats, others EENTM: denies: blurred vision, double vision, ear bleeding, ear discharge, ear drainage, ear pain, ear ringing, eye pain, eye redness, hearing loss, mouth pain, mouth swelling, nasal discharge, nose bleeding, nose congestion, nose pain, photophobia, tearing, throat pain, throat swelling, voice changes, others Respiratory: denies: cough, hemoptysis, orthopnea, SOB at rest, shortness of breath, SOB with excertion, stridor, wheezing, others Cardiovascular: denies: chest pain, dizzy spells, diaphoresis, Dyspnea on exertion, edema, irregular heart beat, left arm pain, lightheadedness, palpitations, PND, syncope, others Gastrointestinal: denies: abdomen distended, abdominal pain, blood streaked bowels, constipated, diarrhea, dysphagia, difficulty swallowing, hematemesis, melena, nausea, poor appetite, poor fluid intake, rectal bleeding, rectal pain, vomiting, others Genitourinary: denies: burning, dysuria, flank pain, frequency, hematuria, incontinence, penile discharge, penile sore, pain, testicle pain, testicle swelling, urgency, others Neurological: denies: dizziness, fainting, headache, left sided numbness, left sided weakness, numbness, paresthesia, pre-existing deficit, right sided numbness, right sided weakness, seizure, speech problems, tingling, tremors, weakness, others Musculoskeletal: denies: back pain, gout, joint pain, joint swelling, muscle pain, muscle stiffness, neck pain, others Integumetry: denies: bruises, change in color, change in hair/nails, dryness, laceration, lesions, lumps, rash, wounds, others Allergic/Immunocompromised: denies: Difficulty Healing, Frequent Infections, Hives, Itching, others Hematologic/Lymphatic: denies: anemia, blood clots, easy bleeding, easy bruising, swollen glands, others Endocrine: denies: excessive hunger, excessive sweating, excessive thirst, excessive urination, flushing, intolerance to cold, intolerance to heat, unexplained weight gain, unexplained weight loss, others Psychiatric: denies: anxiety, bipolar disorder, depression, hopeless, panic disorder, schizophrenia, sleepless, suicidal, others All Other Systems: Reviewed and Negative (negative unless otherwise stated above or in HPI) Physical Exam General Appearance: Mild Distress (Moderate distress due to anxiety related to not having his medications as well as his fatigue and general weakness. Patient did not particularly look toxic at time of evaluation.), Normal HEENT: Normal ENT Inspection, Pharynx Normal, TMs Normal Neck: Full Range of Motion, Non-Tender, Normal, Normal Inspection Respiratory: Chest Non-Tender, Lungs Clear, No Accessory Muscle Use, No Respiratory Distress, Normal Breath Sounds Cardiovascular: No Edema, No JVD, No Murmur, No Gallop, Normal Peripheral Pulses, Regular Rate/Rhythm Breast Exam: Deferred Gastrointestinal: No Organomegaly, Non Tender, No Pulsatile Mass, Normal Bowel Sounds, Soft Genitalia: Deferred Pelvic: Deferred Rectal: Deferred Extremities: No calf tenderness, Normal capillary refill, Normal inspection, Normal range of motion, Non-tender, No pedal edema Neurologic: Alert, No Motor Deficits, Normal Affect, Normal Mood, No Sensory Deficits Cerebellar Function: Normal Reflexes: Normal Skin: Dry, Normal Color, Warm Lymphatic: No Adenopathy Was a procedure done? Was a procedure done?: No Differential Dx Considerations may include: HTN emergency, hyperglycemia, medication noncompliance X-Ray, Labs, Meds, VS Vital Signs Date Time Temp Pulse Resp B/P (MAP) Pulse Ox O2 Delivery O2 Flow Rate FiO2 06/03/24 14:47 98.5 93 18 172/81 (111) 100 Lab Test 06/03/24 15:42 Range/Units POC Glucose 384 H 70-106 mg/dl X-Ray, Labs, Meds, VS Comment Accu-Chek on the patient confirmed a blood sugar of over 380. Nursing attempted to locate the patient multiple times for medication dispensing, but nursing states the patient appears to have eloped from the facility. Time of 1ST Reevaluation: 17:58 Reevaluation 1ST: Unchanged Consultation: PCP Patient Education/Counseling: Diagnosis, Treatment Family Education/Counseling: Diagnosis, Treatment, No Family Present Departure 1 Departure Time of Disposition: 17:58 Impression: Primary Impression: Hyperglycemia due to diabetes mellitus Additional Impression: Encounter for medication refill Disposition: LEFT AWOL/ELOPED Condition: Fair Discharged With: Self Critical Care Note Critical Care Time?: No Stability Stability form required: No Heart Score Heart Score: Heart Score Response (Comments) Value History N/A 0 EKG N/A 0 Age N/A 0 Risk Factors N/A 0 Troponin N/A 0 Total 0 I personally scribed for MAXINE CRUZ PAC ([email or web address]) on 06/03/24 at 15:51. Electronically submitted by Tyler Conley ([email or web address]). MAXINE CRUZ PAC Jun 03, 2024 15:51
== END 2024-06-03 18:00 | disposition left against medical advice (07) ==
LOC: ER 14:33
DX: E11.65 Type 2 diabetes mellitus with hyperglycemia (principal); I10 Essential (primary) hypertension; Z76.0 Encounter for issue of repeat prescription; Z86.73 Personal history of transient ischemic attack (TIA), and cerebral infarction without residual deficits; Z59.00 Homelessness unspecified
CPT/HCPCS: 82947; 82962

== ENCOUNTER 2024-11-08 07:13 | Emergency (ER) | payer OTHER, MEDICAID ==
[~2024-11-08] VITALS: Ht 172.7 cm; Wt 79.5 kg
[~2024-11-08 07:13] MED LIST changes: -LISI-285 PO
--- NOTE | 2024-11-08 07:54 | ED.PDOC ---
Musculoskeletal HPI Comments 64 y/o M, with a history of CVA, DM, HTN, presents to the ED with a chief compliant of left arm pain/soreness/weakness as of 0500 this morning. Patient notes having last stroke in 2021 but is not currently taking any medications. Patient reports falling last night after losing his balance, but denies any trauma to the LUE Patient additionally denies any prior HX of left arm weakness and denies further associated symptoms of left arm pain, headache, chest pain, N/V, fever, dizziness, or palpitations. Patient arrives alert and oriented, ABC's intact, afebrile, vital signs stable, saturating well in room air. Chief Complaint: Upper Extremity Time Seen by MD: 07:41 Primary Care Provider: AyalaOA Reviewed Notes: Nurses Notes, Medications, Allergies Allergies: Coded Allergies: NO KNOWN ALLERGIES (Unverified , 06/01/24) Home Meds Active Scripts Insulin Glargine (Lantus) 100 Unit/Ml Inj, 50 UNIT SC HS for 20 Days, #1 INJ Prov:MAGALIS GARDNER MD 06/02/24 Information Source: Patient Mode of Arrival: Ambulatory Location: Left Extremity Location: Arm Timing: Hours Prehospital treatment: None Severity: Mild Able to Move Extremity: Yes Bear Weight: Limited Pain: None Mechanism: Unknown Onset of Symptoms: Spontaneous Last Tetanus: Unknown Associated signs and symptoms: Weakness, Numbness Past Medical History PAST MEDICAL HISTORY: CVA, DM, HTN Surgical History: Denies all surgeries Family History Family History: Reviewed,noncontributory to illness Social History Smoker: Non-Smoker Alcohol: Denies ETOH Use Drugs: Denies Drug Use Lives In: Homeless Constitutional: denies: chills, diaphoresis, fatigue, fever, malaise, sweats, weakness, others EENTM: denies: blurred vision, double vision, ear bleeding, ear discharge, ear drainage, ear pain, ear ringing, eye pain, eye redness, hearing loss, mouth pain, mouth swelling, nasal discharge, nose bleeding, nose congestion, nose pain, photophobia, tearing, throat pain, throat swelling, voice changes, others Respiratory: denies: cough, hemoptysis, orthopnea, SOB at rest, shortness of breath, SOB with excertion, stridor, wheezing, others Cardiovascular: denies: chest pain, dizzy spells, diaphoresis, Dyspnea on exertion, edema, irregular heart beat, left arm pain, lightheadedness, palpitations, PND, syncope, others Gastrointestinal: denies: abdomen distended, abdominal pain, blood streaked bowels, constipated, diarrhea, dysphagia, difficulty swallowing, hematemesis, melena, nausea, poor appetite, poor fluid intake, rectal bleeding, rectal pain, vomiting, others Genitourinary: denies: burning, dysuria, flank pain, frequency, hematuria, incontinence, penile discharge, penile sore, pain, testicle pain, testicle swelling, urgency, others Neurological: reports: numbness, weakness; denies: dizziness, fainting, headache, left sided numbness, left sided weakness, paresthesia, pre-existing deficit, right sided numbness, right sided weakness, seizure, speech problems, tingling, tremors, others Musculoskeletal: denies: back pain, gout, joint pain, joint swelling, muscle pain, muscle stiffness, neck pain, others Integumetry: denies: bruises, change in color, change in hair/nails, dryness, laceration, lesions, lumps, rash, wounds, others Allergic/Immunocompromised: denies: Difficulty Healing, Frequent Infections, Hives, Itching, others Hematologic/Lymphatic: denies: anemia, blood clots, easy bleeding, easy bruising, swollen glands, others Endocrine: denies: excessive hunger, excessive sweating, excessive thirst, excessive urination, flushing, intolerance to cold, intolerance to heat, unexplained weight gain, unexplained weight loss, others Psychiatric: denies: anxiety, bipolar disorder, depression, hopeless, panic disorder, schizophrenia, sleepless, suicidal, others All Other Systems: Reviewed and Negative Physical Exam General Appearance: Mild Distress, Normal HEENT: Normal ENT Inspection, Pharynx Normal, TMs Normal, Other (HINTS exam neg) Neck: Full Range of Motion, Non-Tender, Normal, Normal Inspection Respiratory: Chest Non-Tender, Lungs Clear, No Accessory Muscle Use, No Respiratory Distress, Normal Breath Sounds Cardiovascular: No Edema, No JVD, No Murmur, No Gallop, Normal Peripheral Pulses, Regular Rate/Rhythm Breast Exam: Deferred Gastrointestinal: No Organomegaly, Non Tender, No Pulsatile Mass, Normal Bowel Sounds, Soft Genitalia: Deferred Pelvic: Deferred Rectal: Deferred Extremities: No calf tenderness, Normal capillary refill, Normal inspection, Normal range of motion, Non-tender, No pedal edema Musculoskeletal : Apperance: Normal Neurologic: Alert, caramel cutter hand II-XII nml as Tested, No Motor Deficits, Normal Affect, Normal Mood, No Sensory Deficits, Other Cerebellar Function: Normal, Other (right upper extemity strength 5/5, left upper extremity strength 4/5; lower extremities 5/5 bilaterally; patella reflexes 2+ bilaterally) Reflexes: Normal Skin: Dry, Normal Color, Warm Lymphatic: No Adenopathy Was a procedure done? Was a procedure done?: No Differential Diagnosis EXT Differential Diagnosis: Cellulitis, Fracture, Sprain, Contusion, Strain X-Ray, Labs, Meds, VS Vital Signs Date Time Temp Pulse Resp B/P (MAP) Pulse Ox O2 Delivery O2 Flow Rate FiO2 11/08/24 10:08 84 19 96 Room Air* 0 21 11/08/24 09:14 79 20 95 Room Air 11/08/24 09:14 98.1 79 20 125/54 (77) 95 98.1 11/08/24 07:36 97.1 80 16 143/70 (94) 96 97.1 Lab Test 11/08/24 09:53 11/08/24 08:08 11/08/24 07:51 Range/Units POC Glucose 376 H 70-106 mg/dl White Blood Count 11.9 H 4.4-10.8 10^3/uL Red Blood Count 4.45 L 4.5-5.90 10^6/uL Hemoglobin 12.9 L 13.5-17.5 g/dL Hematocrit 37.6 L 41.0-53.0 % Mean Corpuscular Volume 84.5 80.0-100.0 fL Mean Corpuscular Hemoglobin 29.0 28.0-32.0 pg Mean Corpuscular Hemoglobin Concent 34.4 32.0-36.0 g/dL Red Cell Distribution Width 13.0 11.8-14.3 % Platelet Count 282 140-450 10^3/uL Mean Platelet Volume 6.8 L 6.9-10.8 fL Neutrophils (%) (Auto) 77.7 37.0-80.0 % Lymphocytes (%) (Auto) 15.2 10.0-50.0 % Monocytes (%) (Auto) 5.8 0.0-12.0 % Eosinophils (%) (Auto) 1.0 0.0-7.0 % Basophils (%) (Auto) 0.3 0.0-2.0 % Neutrophils # (Auto) 9.3 H 1.6-8.6 10 ^3/uL Lymphocytes # (Auto) 1.8 0.4-5.4 10 ^3/uL Monocytes # (Auto) 0.7 0-1.3 10 ^3/uL Eosinophils # (Auto) 0.1 0-0.8 10 ^3/uL Basophils # (Auto) 0 0-0.2 10 ^3/uL Nucleated Red Blood Cells 0.0 % Erythrocyte Sedimentation Rate 14 0-20 mm/hr Sodium Level 135 L 136-145 mmol/L Potassium Level 4.4 3.5-5.1 mmol/L Chloride Level 101 98-107 mmol/L Carbon Dioxide Level 25 20-31 mmol/L Anion Gap 9 5-15 Blood Urea Nitrogen 16 9-23 mg/dL Creatinine 1.02 0.700-1.30 mg/dL Glomerular Filtration Rate Calc 83 >90 mL/min BUN/Creatinine Ratio 15.7 10.0-20.0 Serum Glucose 436 *H 74-106 mg/dL Calcium Level 9.5 8.7-10.4 mg/dL Total Bilirubin 0.5 0.2-1.0 mg/dL Aspartate Amino Transferase (AST) 19 13-40 U/L Alanine Aminotransferase (ALT) 17 7-40 U/L Alkaline Phosphatase 71 46-116 U/L C-Reactive Protein High Sensitivity 2.96 H <1.0 mg/dL Total Protein 6.4 5.7-8.2 g/dL Albumin 4.1 3.2-4.8 g/dL Urine Color Light-yellow Yellow Urine Clarity Clear Clear Urine pH 5.0 5.0-9.0 Urine Specific [place] 1.031 1.001-1.035 Urine Protein Negative Negative Urine Ketones Negative Negative Urine Blood Negative Negative /uL Urine Nitrite Negative Negative Urine Bilirubin Negative Negative Urine Urobilinogen Normal Negative mg/dL Urine Leukocyte Esterase Negative Negative /uL Urine RBC 1 0 - 3 /hpf Urine Microscopic WBC < 1 0-3 /HPF Urine Squamous Epithelial Cells None seen <5 /hpf Urine Bacteria None seen None Seen /hpf Urine Glucose 4+ H Normal mg/dL Urine Opiates Screen Neg NEGATIVE Urine Fentanyl Screen Neg NEGATIVE Urine Barbiturates Screen Neg NEGATIVE Urine Phencyclidine Screen Neg NEGATIVE Urine Amphetamines Screen Neg NEGATIVE Urine Benzodiazepines Screen Neg NEGATIVE Urine Cocaine Screen Neg NEGATIVE Urine Cannabinoids Screen Neg NEGATIVE Current Medications Medications (Trade) Dose Ordered Sig/Kenzie Route Start Time Stop Time Status Last Admin Sodium Chloride 1,000 ml @ 1,000 mls/hr Q1H ONCE IV 11/08/24 09:30 11/08/24 10:29 DC 11/08/24 09:50 Insulin Human Lispro (HumaLOG) 10 units ONCE ONCE SC 11/08/24 09:30 11/08/24 09:33 DC 11/08/24 10:02 EXAM: CT HEAD WITHOUT CONTRAST HISTORY: R/o serious pathology COMPARISON: None TECHNIQUE: Noncontrast axial CT images of the head were performed. Sagittal and coronal reformatted images were obtained. This CT exam was performed using 1 or more of the following dose reduction techniques: Automated exposure control, adjustment of the mA and/or kv according to patient size, or the use of iterative reconstruction techniques. Radiation Dose: CTDI volume is 65.08 mGy. Dose-length product is 1208.51 mGy*cm FINDINGS: No intracranial hemorrhage, mass, midline shift, hydrocephalus, or evidence of acute large vessel infarct. There are thick atherosclerotic calcifications of t he cavernous ICAs and terminal vertebral arteries. The paranasal sinuses are clear. The bilateral mastoid air cells and middle ear spaces are clear. No cranial fracture or scalp edema. There are multiple cutaneous soft tissue nodules of the scalp and face. There are numerous dental caries, although the teeth are not fully imaged here. IMPRESSION: 1. No acute intracranial process. 2. Numerous dental caries. Recommend outpatient dental consultation. X-Ray, Labs, Meds, VS Comment 64 y/o M, with a history of CVA, DM, HTN, presents to the ED with a chief compliant of left arm pain/soreness/weakness as of 0500 this morning. Patient arrives alert and oriented, ABC's intact, afebrile, vital signs stable, saturating well in room air CBC was ordered to exclude anemia, blood loss, or infection. CMP was ordered to exclude electrolyte abnormalities, renal failure, dehydration, hyperglycemia and/or liver enzyme abnormalities. Sed rate + CRP ordered Urinalysis was ordered to rule out UTI or hematuria. UDS ordered Diagnostic imaging, Head CT without Contrast, ordered by me and results interpreted by radiology: No acute intracranial process. Numerous dental caries. Recommend outpatient dental consultation. Labs in the ED showed: Serum Glucose 436H The patient presents with signs and symptoms consistent uncontrolled diabetes/hyperglcemia. The cause appears to be dietary / noncompliance. No ev idence of infection. Patient given IVF, and insulin 10 U subcutaneous. Recheck finger-stick blood glucose of < 200 After observation patient and treatment noted above BS decreased. Patient showed no signs of toxcity. Patient's history, physical and workup do not reveal any evidence that patient needs admission to the hospital. The patient will need outpatient follow up with the diabetic education classes for new onset diabetes. On reevaluation, patient had symptomatic improvement. Patient is stable for discharge at this time. External notes reviewed. Test results and diagnostic imaging interpreted. All diagnostic findings, discharge care, education and instructions provided Follow-up with PCP in 2 to 3 days Patient verbalized understanding and agreed to treatment plan Vital signs stable, afebrile, no acute distress noted Patient ambulatory with strong steady gait Advised to return precautions for any new or worsening symptoms, return to ER immediately for re-evaluation Patient is aware that the purpose of this visit was for an acute medical emergency requiring emergent stabilization. Chronic conditions, including malignancies have not been ruled out. Patient is instructed to follow up with PCP as directed and discharge instructions for continued care and workup. If unable to arrange follow-up, patient is to return to the emergency department for reassessment. Patient (parent or legal guardian if applicable) was given verbal and written discharge instructions and acknowledges understanding. Time of 1ST Reevaluation: 08:20 Reevaluation 1ST: Unchanged Time of 2ND Reevaluation: 10:22 Reevaluation 2ND: Improved Patient Education/Counseling: Diagnosis, Treatment Family Education/Counseling: No Family Present Medical Screening: No EMC Exist At This Time Departure 1 Departure Time of Disposition: 11:03 Impression: Primary Impression: Hyperglycemia due to diabetes mellitus Additional Impression: Left face and left arm tingling Disposition: 01 HOME / SELF CARE / HOMELESS Condition: Stable Discharged With: Self Critical Care Note Critical Care Time?: No Stability Stability form required: No Heart Score Heart Score: Heart Score Response (Comments) Value History N/A 0 EKG N/A 0 Age N/A 0 Risk Factors N/A 0 Troponin N/A 0 Total 0 I personally scribed for SHRAVAN VAILO F CREDIT REFERENCE CLERK ([email or web address]) on 11/08/24 at 07:54. Electronically submitted by Hermila Gutierrez ([employer]). I personally scribed for SHRAVAN VAILO F CREDIT REFERENCE CLERK ([email or web address]) on 11/08/24 at 08:00. Electronically submitted by Hermila Gutierrez ([employer]). I personally scribed for YAREDROMAN F CREDIT REFERENCE CLERK ([email or web address]) on 11/08/24 at 08:50. Electronically submitted by Hermila Gutierrez ([employer]). I personally scribed for YAREDROMAN F CREDIT REFERENCE CLERK ([email or web address]) on 11/08/24 at 08:51. Electronically submitted by Hermila Gutierrez ([employer]). I personally scribed for YAREDROMAN F CREDIT REFERENCE CLERK ([email or web address]) on 11/08/24 at 09:02. Electronically submitted by Hermila Gutierrez ([employer]). YAREDROMAN F CREDIT REFERENCE CLERK Nov 08, 2024 07:54
[2024-11-08 08:17] LABS: Hematocrit 37.6 % (41.0-53.0); Hemoglobin 12.9 g/dL (13.5-17.5); Mean Corpuscular Hemoglobin 29.0 pg (28.0-32.0); Mean Corpuscular Volume 84.5 fL (80.0-100.0); Nucleated Red Blood Cells % 0.0 %
--- NOTE | 2024-11-08 08:29 | DVH ---
EXAM: CT HEAD WITHOUT CONTRAST HISTORY: R/o serious pathology COMPARISON: None TECHNIQUE: Noncontrast axial CT images of the head were performed. Sagittal and coronal reformatted i mages were obtained. This CT exam was performed using 1 or more of the following dose reduction techn iques: Automated exposure control, adjustment of the mA and/or kv according to patient size, or the u se of iterative reconstruction techniques. Radiation Dose: CTDI volume is 65.08 mGy. Dose-length product is 1208.51 mGy*cm FINDINGS: No intracranial hemorrhage, mass, midline shift, hydrocephalus, or evidence of acute large vessel inf arct. There are thick atherosclerotic calcifications of the cavernous ICAs and terminal vertebral art eries. The paranasal sinuses are clear. The bilateral mastoid air cells and middle ear spaces are derek ar. No cranial fracture or scalp edema. There are multiple cutaneous soft tissue nodules of the scalp and face. There are numerous dental caries, although the teeth are not fully imaged here. IMPRESSION: 1. No acute intracranial process. 2. Numerous dental caries. Recommend outpatient dental consultation.
[2024-11-08 08:33] LABS: Alanine Aminotransferase 17 U/L (7-40); Albumin 4.1 g/dL (3.2-4.8); Alkaline Phosphatase 71 U/L (46-116); Anion Gap 9 (5-15); BUN/Creatinine Ratio 15.7 (10.0-20.0); Blood Urea Nitrogen 16 mg/dL (9-23); Calcium 9.5 mg/dL (8.7-10.4); Carbon Dioxide 25 mmol/L (20-31); Chloride 101 mmol/L (98-107); Potassium 4.4 mmol/L (3.5-5.1); Total Protein 6.4 g/dL (5.7-8.2)
[2024-11-08 08:34] LABS: Bilirubin, Total 0.5 mg/dL (0.2-1.0)
[2024-11-08 08:35] LABS: Sodium 135 mmol/L (136-145)
[2024-11-08 08:38] LABS: Glucose 436 mg/dL (74-106)
[2024-11-08 09:14] VITALS: BP 125/54; TEMP 98.1
[2024-11-08 09:19] LABS: Urine Protein, UAD Negative (Negative)
[2024-11-08 09:22] LABS: Barbiturate Scree,Urine Neg (NEGATIVE); Cannabinoid Screen, Urine Neg (NEGATIVE); Opiate Scree,Urine Neg (NEGATIVE); Phencyclidine Screen, Urine Neg (NEGATIVE)
[2024-11-08 09:23] LABS: Amphetamine Screen, Urine Neg (NEGATIVE); Benzodiazephine Screen, Urine Neg (NEGATIVE); Cocaine Screen, Urine Neg (NEGATIVE)
[2024-11-08] MEDS: SODIUM CHLORIDE 0.9% 1,000 ML IV ONE (09:50)
[2024-11-08] MEDS: INSULIN LISPRO (HUMAN) 100 UNITS/ML ML SC ONE (10:02)
[2024-11-08 10:08] VITALS: PULSE 84; RESP 19; O2SAT 96
== END 2024-11-08 11:14 | disposition home or self-care (01) ==
LOC: ER 07:13
DX: E11.65 Type 2 diabetes mellitus with hyperglycemia (principal); R20.2 Paresthesia of skin; I10 Essential (primary) hypertension; Z86.73 Personal history of transient ischemic attack (TIA), and cerebral infarction without residual deficits; Z59.00 Homelessness unspecified; Z79.899 Other long term (current) drug therapy
CPT/HCPCS: 36415; 70450; 80053; 80307; 81001; 82947; 85025; 85652; 86141; 96360; 96372; 99285; J1815; J7030; 82962